=== PATIENT | male | born 1995 | race Native Hawaiian/Other Pacific Islander ===

== ENCOUNTER 2023-04-04 10:13 | Emergency (ER) | payer BC ==
[2023-04-04 10:38] VITALS: TEMP 95.8
[2023-04-04] MEDS ORDERED: XYLOCAINE 1%/Epi 1:100000 MDV 20 ML ONE (10:58)
--- NOTE | 2023-04-04 11:05 | XRAY ---
Indication: Puncture wound. Pain and bleeding. Foreign body. Comparison: None 2 portable views left femur demonstrate 5.6 cm long wire/foreign body in soft tissues medial aspect mid to distal thigh. No other bony, articular, or soft tissue abnormalities.
[2023-04-04] MEDS ORDERED: KEFZOL 1 GM IM ONE (11:37)
--- NOTE | 2023-04-04 11:37 | ERPHSYRPT ---
- History of Present Illness Time Seen by Provider: 04/04/23 10:45 Source: patient Exam Limitations: no limitations Patient Subjective Stated Complaint: pt states that he was weed wacking and hit a something metal and began to have pain and bleeding to his leg Triage Nursing Assessment: pt ambulated into the er; pt is axo x4; c/o left leg pain; puncture to left thigh; minimal bleeding present; strong left pedal pulse; good cap refill to [facility]; left leg is cool to the touch; vital wnl; no respiratory distress present Physician History: 28 years old male presented in the ER with chief complaint of injury left thigh while patient was weed whacking and a piece of metal flew and hit him through his jeans and started bleeding. He noticed a small stab wound with dull aching to sharp pain at the site of entry on the anterolateral side of thigh and on the medial thigh some point tenderness. Cramping with ambulation. No distal numbness tingling or weakness. Up-to-date with tetanus. 0.2 cm entry wound anterolateral lower third of thigh with tenderness around. Minimal oozing. No active spurting. Tenderness on the medial side of the thigh but no definite palpable foreign body. Distal neurovascular intact. Given morphine for symptomatic relief. X-rays showed 5.6 cm foreign body. Is not definitely palpable at 1 point, I do not think I can take it out blindly., Would benefit with fluoroscopic guidance removal. [facility] orthopedics is paged. Allergies/Adverse Reactions: No Known Drug Allergies Allergy (Unverified 04/04/23 10:25) Hx Tetanus, Diphtheria Vaccination/Date Given: Yes (3-4 years ago) Hx Influenza Vaccination/Date Given: No Hx Pneumococcal Vaccination/Date Given: No Travel Risk - International Travel Have you traveled outside of the country in past 3 weeks: No - Coronavirus Screening Are you exhibiting any of the following symptoms?: No Close contact with a COVID-19 positive Pt in past 14-21 Days: No - Vaccine Status Have you recieved a Covid-19 vaccination: No - Review of Systems Constitutional: No Symptoms Ears, Nose, & Throat: No Symptoms Respiratory: No Symptoms Cardiac: No Symptoms Abdominal/Gastrointestinal: No Symptoms Musculoskeletal: Injury Neurological: No Symptoms Hematologic/Lymphatic: No Symptoms Immunological/Allergic: No Symptoms - Past Medical History Pertinent Past Medical History: No - Past Surgical History Past Surgical History: No - Social History Smoking Status: Never smoker Exposure to second hand smoke: No Drug Use: none Patient Lives Alone: No - Nursing Vital Signs Nursing Vital Signs: Initial Vital Signs Temperature 95.8 F 04/04/23 10:14 Pulse Rate 62 04/04/23 10:14 Respiratory Rate 16 04/04/23 10:14 Blood Pressure 138/72 04/04/23 10:14 O2 Sat by Pulse Oximetry 100 04/04/23 10:14 Pain Scale Pain Intensity 4 - Physical Exam General Appearance: no apparent distress, alert Eye Exam: PERRL/EOMI Neck Exam: normal inspection, non-tender, supple Respiratory Exam: normal breath sounds, lungs clear Cardiovascular Exam: regular rate/rhythm, normal heart sounds Extremity Exam: normal range of motion, lacerations, penetrations (Left anterolateral lower thigh with slow oozing. Tenderness on the medial side of the thigh as well.), tenderness Neurologic Exam: alert, oriented x 3, cooperative Skin Exam: normal color SpO2 Interpretation: normal SpO2: 100 O2 Delivery: Room Air Ordered Tests: Active Orders 24 hr Category Date Time Status FEMUR Stat Exams 04/04/23 10:22 Completed Medication Summary Discontinued Medications Generic Name Dose Route Start Last Admin Trade Name Freq PRN Reason Stop Dose Admin Cefazolin Sodium 1 g 04/04/23 11:37 04/04/23 11:50 Cefazolin Sodium 1 Gm Vial IM 04/04/23 11:38 1 g STAT ONE Administration Cefazolin Sodium Confirm 04/04/23 11:43 Cefazolin Sodium 1 Gm Vial Administered 04/04/23 11:44 Dose 1 g .ROUTE .STK-MED ONE Lidocaine/Epinephrine Confirm 04/04/23 10:58 Lidocaine Hcl/Epinephrine 1% 20 Ml Administered 04/04/23 10:59 Dose 5 ml .ROUTE .STK-MED ONE Morphine Sulfate 4 mg 04/04/23 11:40 04/04/23 11:52 Morphine Sulfate 4 Mg/Ml Injection IM 04/04/23 11:41 4 mg STAT ONE Administration Morphine Sulfate Confirm 04/04/23 11:43 Morphine Sulfate 4 Mg/Ml Injection Administered 04/04/23 11:44 Dose 4 mg .ROUTE .STK-MED ONE Morphine Sulfate Confirm 04/04/23 14:38 Morphine Sulfate 4 Mg/Ml Injection Administered 04/04/23 14:39 Dose 4 mg .ROUTE .STK-MED ONE Morphine Sulfate 4 mg 04/04/23 14:56 Morphine Sulfate 4 Mg/Ml Injection IV 04/04/23 14:57 STAT ONE Ondansetron HCl Confirm 04/04/23 14:38 Ondansetron Hcl 4 Mg/2 Ml Vial Administered 04/04/23 14:39 Dose 4 mg .ROUTE .STK-MED ONE Ondansetron HCl 4 mg 04/04/23 14:56 Ondansetron Hcl 4 Mg/2 Ml Vial IV 04/04/23 14:57 STAT ONE - Progress Progress: unchanged Progress Note: 04/04/23 11:37 28 years old male presented in the ER with chief complaint of injury left thigh while patient was weed whacking and a piece of metal flew and hit him through his jeans and started bleeding. He noticed a small stab wound with dull aching to sharp pain at the site of entry on the anterolateral side of thigh and on the medial thigh some point tenderness. Cramping with ambulation. No distal numbness tingling or weakness. Up-to-date with tetanus. 0.2cm entry wound anterolateral lower third of thigh with tenderness around. Minimal oozing. No active spurting. Tenderness on the medial side of the thigh but no definite palpable foreign body. Distal neurovascular intact. Given morphine for symptomatic relief. X-rays showed 5.6 cm foreign body. Is not definitely palpable at 1 point, I do not think I can take it out blindly., Would benefit with fluoroscopic guidance removal. I have given a dose of Kefzol. [facility] orthopedics is paged. 04/04/23 13:[address] Shine orthopedic [facility], no beds are available at [facility]. Recommended continue with antibiotics, knee immobilizer, nonweightbearing and will plan on operative removal tomorrow morning. I discussed plan with patient but he would rather like to get it done today, [facility] transfer center is called. 04/04/23 14:58 I have called [facility], discussed with Dr. Rome, reviewed history, work-up, agreed with transfer. Later on Dr. Rome called back after discussion with trauma surgeon Lele who does not think patient needs to be transferred and recommended symptomatic treatment along with antibiotics and outpatient follow-up after couple of weeks. I have discussed with Dr. Royal again and his recommendations are conservative management currently and outpatient follow-up for removal later. I have discussed with patient and he does not agree with it, wanted to be transferred to [facility]. I have discussed with Dr. Mary Jo Alas orthopedics and general surgeon photonics engineering technician, reviewed history, work-up and recommended transfer to higher level of care. I have discussed with patient about recommendations from [facility] and need for transfer to [facility]. He does not want to be transferred and would rather like to follow-up with Dr. Viramontes in the morning. He is placed in knee immobilizer. We will continue with oral anti biotics and pain medications. On reevaluation before discharge patient has good dorsalis pedis/posterior tibial with cap refill less than 3 seconds. Recommended nonweightbearing and outpatient follow-up for surgical removal tomorrow per Dr. Shine. Dr. Viramontes is going to call patient to schedule tomorrow OR removal. Discussed signs symptoms of worsening needing return to ER which patient seems understanding. Stable for discharge. Counseled pt/family regarding: diagnosis, need for follow-up, rad results Medical Desision Making - Independent Historian Additional History obtained from: Spouse - Diagnostic Testing Diagnostic test were ordered, analyzed, and reviewed by me: Yes Radiological Interpretation: Reviewed by me - Departure Departure Disposition: Home Clinical Impression: Foreign body of left thigh, Penetrating injury of left lower extremity Condition: Stable Critical Care Time: No Referrals: DOCTOR,NO FAMILY [Primary Care Provider] - Follow up/PCP as directed JUAQUIN SHINE Jr., MD [NON-STAFF PHY W/O PRIVILEGES] - Follow up/PCP as directed (As scheduled/recommended) Instructions: Wound Care (DC) Additional Instructions: Keep the wound clean and dry. Nonweightbearing. Take pain medication as needed. Continue with antibiotics. Follow instructions per Dr. Shine for removal of foreign body in the thigh. Return to ER for excruciating pain, numbness tingling, cold left lower extremity/foot or bluish discoloration etc. Prescriptions: Hydrocodone/Acetaminophen [Hydrocodone-Acetamin 7.5-325] 1 each PO Q6HPRN PRN 3 Days #12 tablet MDD 4 PRN Reason: Pain Cephalexin Mh 500 mg [Keflex 500 mg] 500 mg PO QID #30 cap
[2023-04-04] MEDS ORDERED: MORPHINE SULFATE 4 MG INJ IM ONE (11:40)
[2023-04-04] MEDS ORDERED: MORPHINE SULFATE 4 MG INJ ONE ×2 (11:43→14:38)
[2023-04-04] MEDS ORDERED: KEFZOL 1 GM ONE (11:43)
[2023-04-04 14:00] VITALS: PULSE 76; RESP 20
[2023-04-04 14:01] VITALS: BP 126/78
[2023-04-04] MEDS ORDERED: Zofran 4 MG/2 ML VIAL ONE (14:38)
[2023-04-04] MEDS ORDERED: MORPHINE SULFATE 4 MG INJ IV ONE (14:56)
[2023-04-04] MEDS ORDERED: Zofran 4 MG/2 ML VIAL IV ONE (14:56)
[2023-04-04 15:03] VITALS: O2SAT 100
== END 2023-04-04 15:30 | disposition home or self-care (01) ==
LOC: ED 10:13
DX: S71.142A Puncture wound with foreign body, left thigh, initial encounter (principal); W20.8XXA Other cause of strike by thrown, projected or falling object, initial encounter; Y93.H2 Activity, gardening and landscaping; Z79.891 Long term (current) use of opiate analgesic; Z28.310 Unvaccinated for COVID-19
CPT/HCPCS: 73552; 96372; 96374; 99284; J0690; J2270; J2405; L1830